=== PATIENT | female | born 1970 | race Caucasian/White ===

== ENCOUNTER 2016-11-04 21:41 | Emergency (ER) | payer BC ==
[2016-11-04 22:10] LABS: URINE APPEARANCE SL CLOUDY; URINE BILIRUBIN NEGATIVE (NEGATIVE); URINE BLOOD MODERATE (NEGATIVE); URINE COLOR ORANGE; URINE KETONE NEGATIVE (NEGATIVE); URINE LEUKOCYTE ESTERASE MODERATE (NEGATIVE); URINE NITRITE POSITIVE (NEGATIVE)
[2016-11-04 22:17] LABS: URINE WBC >50 (0-2/hpf)
[2016-11-04 22:18] LABS: URINE BACTERIA 1+
[2016-11-04] MEDS ORDERED: CIPROFLOXACIN HCL 500 MG TABLET PO ONE (22:32)
--- NOTE | 2016-11-04 22:42 | Emergency Department Record ---
History of Present Illness - General Chief complaint: Female Urogenital Problem Stated complaint: URINARY PROBLEMS Time Seen by Provider: 11/04/16 22:07 Source: Patient Mode of Arrival: Ambulatory Limitations: No limitations - History of Present Illness Initial comments: pt was dxd with uti at [facility] and finished a course of keflex. symptoms got better for a day then got worse again. pt has dysuria, suprapubic pain. MD Complaint: Dysuria, Pelvic pain Onset/Timin -: Days(s) Location: Suprapubic Severity scale (1-10): 8 Quality: Other Consistency: Constant Improves with: None Worsens with: Urination Associated Symptoms: Dysuria - Related Data Home Medications Medication Instructions Recorded Confirmed Last Taken Atorvastatin Calcium [Lipitor] 20 mg PO QHS 01/26/14 07/29/16 2 Days Ago Metformin HCl [Glucophage] 1,000 mg PO BID 01/26/14 07/29/16 1 Day Ago Glimepiride [Amaryl] 4 mg PO BID 02/22/14 02/03/16 1 Day Ago Lisinopril [Zestril] 5 mg PO DAILY 11/29/14 02/03/16 1 Day Ago Cyclobenzaprine HCl [Flexeril] 10 mg PO ASDIR PRN 07/29/16 07/29/16 2 Days Ago Dulaglutide [Trulicity] 0.75 mg SQ WEEKLY 07/29/16 07/29/16 2 Days Ago Previous Rx's Medication Instructions Recorded Ciprofloxacin HCl [Cipro] 500 mg PO Q12HR #5 tablet 11/04/16 Allergies Allergy/AdvReac Type Severity Reaction Status Date / Time naproxen Allergy Intermediate SWELLING Verified 07/29/16 18:56 OF THE TONGUE Travel Screening - Travel/Exposure Within Last 30 Days Have you traveled within the last 30 days?: No - Travel Symptoms Symptom Screening: None Review of Systems Reviewed: No additional complaints except as noted below Constitutional: Reports: As per HPI. Denies: Chills, Fever, Malaise, Night sweats, Weakness, Weight change Eyes: Reports: As per HPI. Denies: Eye discharge, Eye pain, Photophobia, Vision change ENT: Reports: As per HPI. Denies: Congestion, Dental pain, Ear pain, Epistaxis , Hearing loss, Throat pain Respiratory: Reports: As per HPI. Denies: Cough, Dyspnea, Hemoptysis, Stridor, Wheezes Cardiovascular: Reports: As per HPI. Denies: Arrhythmia, Chest pain, Dyspnea on exertion, Edema, Murmurs, Orthopnea, Palpitations, Paroxysmal nocturnal dyspnea, Rheumatic Fever, Syncope Endocrine: Reports: As per HPI. Denies: Fatigue, Heat or cold intolerance, Polydipsia, Polyuria Gastrointestinal: Reports: As per HPI. Denies: Abdominal pain, Constipation, Diarrhea, Hematemesis, Hematochezia, Melena, Nausea, Vomiting Genitourinary: Reports: As per HPI. Denies: Abnormal menses, Discharge, Dyspareunia, Dysuria, Frequency, Hematuria, Incontinence, Retention, Urgency Musculoskeletal: Reports: As per HPI. Denies: Arthralgia, Back pain, Gout, Joint swelling, Myalgia, Neck pain Skin: Reports: As per HPI. Denies: Bruising, Change in color, Change in hair/ nails, Lesions, Pruritus, Rash Neurological: Reports: As per HPI. Denies: Abnormal gait, Confusion, Headache, Numbness, Paresthesias, Seizure, Tingling, Tremors, Vertigo, Weakness Psychiatric: Reports: As per HPI. Denies: Anxiety, Auditory hallucinations, Depression, Homicidal thoughts, Suicidal thoughts, Visual hallucinations Hematological/Lymphatic: Reports: As per HPI. Denies: Anemia, Blood Clots, Easy bleeding, Easy bruising, Swollen glands Past Medical History - SOCIAL HISTORY Smoking Status: Current every day smoker - RESPIRATORY Hx Respiratory Disorders: Yes Hx Asthma: Yes - CARDIOVASCULAR Hx Cardio Disorders: Yes Hx Hypertension: Yes - NEURO Hx Neuro Disorders: No - GI Hx GI Disorders: No - Hx Genitourinary Disorders: No - ENDOCRINE Hx Endocrine Disorders: Yes Hx Diabetes: Yes (Type 2) - MUSCULOSKELETAL Hx Musculoskeletal Disorders: Yes Hx Arthritis: Yes (shoulders) Comment:: c5-c6 fusing - PSYCH Hx Psych Problems: No - HEMATOLOGY/ONCOLOGY Hx Hematology/Oncology Disorders: No Family Medical History Any Significant Family History?: Yes Hx Diabetes: Mother, Grandparents Physical Exam - General General Appearance: Alert, Oriented x3, Cooperative, Mild distress - Head Head exam: Normal inspection - Eye Eye exam: Normal appearance, PERRL, EOMI Pupils: Normal accommodation - ENT ENT exam: Normal exam, Mucous membranes moist, Normal external ear exam, Normal orophraynx Ear exam: Normal external inspection. negative: External canal tenderness Nasal Exam: Normal inspection. negative: Discharge, Sinus tenderness Mouth exam: Normal external inspection, Tongue normal Teeth exam: Normal inspection. negative: Dental caries Throat exam: Normal inspection. negative: Tonsillar erythema, Tonsillar exudate - Neck Neck exam: Normal inspection, Full ROM. negative: Tenderness - Respiratory Respiratory exam: Normal lung sounds bilaterally. negative: Respiratory distress - Cardiovascular Cardiovascular Exam: Regular rate, Normal rhythm, Normal heart sounds - GI/Abdominal GI/Abdominal exam: Soft, Normal bowel sounds, Tenderness (suprapubic) - Rectal Rectal exam: Deferred - exam: Deferred - Extremities Extremities exam: Normal inspection, Full ROM, Normal capillary refill. negative: Tenderness - Back Back exam: Reports: Normal inspection, Full ROM. Denies: Muscle spasm, Rash noted, Tenderness - Neurological Neurological exam: Alert, CN II-XII intact, Normal gait, Oriented X3 - Psychiatric Psychiatric exam: Normal affect, Normal mood - Skin Skin exam: Dry, Intact, Normal color, Warm Course Vital Signs 11/04/16 21:55 Temperature 98.4 F Pulse Rate 84 Respiratory 18 Rate Blood Pressure 155/79 Pulse Ox 98 Medical Decision Making - Lab Data Lab Results 11/04/16 Range/Units 22:11 Urine Color [place] H Urine Appearance Sl cloudy Urine pH 5.0 (5.0-8.0) Ur Specific [place] 1.020 (1.002-1.030) Urine Protein 100 mg/dl H (NEGATIVE) Urine Glucose (UA) 250 mg/dl H (NEGATIVE) Urine Ketones Negative (NEGATIVE) Urine Blood Moderate (NEGATIVE) Urine Nitrite Positive H (NEGATIVE) Urine Bilirubin Negative (NEGATIVE) Urine Urobilinogen 4.0 H (0.20 - 1.00) E.U./dL Ur Leukocyte Esterase Moderate H (NEGATIVE) Urine RBC 3 - 6 (NONE SEEN) Urine WBC >50 (0-2/hpf) Ur Epithelial Cells 3 - 6 (FEW) Urine Bacteria 1+ Disposition Disposition: Discharge Clinical Impression: UTI (urinary tract infection) Qualifiers: Urinary tract infection type: acute cystitis Hematuria presence: without hematuria Qualified Code(s): N30.00 - Acute cystitis without hematuria Disposition: Home, Self-Care Condition: (1) Good Instructions: Urinary Tract Infection in Women (ED) Additional Instructions: follow up with family doctor, return sooner if worse. push fluids. Prescriptions: Ciprofloxacin HCl [Cipro] 500 mg PO Q12HR #5 tablet Forms: Patient Portal Access
== END 2016-11-04 23:01 | disposition home or self-care (01) ==
LOC: ER 21:41
DX: N30.00 Acute cystitis without hematuria (principal)
CPT/HCPCS: 81001; 99282

== ENCOUNTER 2017-02-04 00:26 | Emergency (ER) | payer BC ==
[2017-02-04] MEDS ORDERED: HYDROMORPHONE HCL 1 MG/ML CPJ IM ONE (01:03)
[2017-02-04] MEDS ORDERED: PROMETHAZINE HCL 25 MG/ML VIAL IM ONE (01:03)
[2017-02-04] MEDS ORDERED: ORPHENADRINE CITRATE 60MG/2ML VIAL IM ONE (01:03)
--- NOTE | 2017-02-04 01:09 | Emergency Department Record ---
History of Present Illness - General Chief Complaint: Back Pain/Injury Stated Complaint: BACK PAIN Time Seen by Provider: 02/04/17 00:54 Source: Patient Mode of Arrival: Ambulatory Limitations: No limitations - History of Present Illness Initial Comments: pt has had r back pain since she wokeup which has progressively gotten worse. it radiates into her buttock and leg. she denies known injury. she has no numbness or problems with bowel or bladder MD Complaint: Back pain Onset/Timin -: Days(s) Similar Symptoms Previously: No Place: Home Radiation: Buttocks, Right leg Severity: Mild Severity scale (1-10): 8 Quality: Burning Consistency: Constant Improves With: None Worsens With: None Context: Unknown Associated Symptoms: Denies other symptoms Treatments Prior to Arrival: Other - Related Data Home Medications Medication Instructions Recorded Confirmed Last Taken Atorvastatin Calcium [Lipitor] 20 mg PO QHS 01/26/14 02/04/17 2 Days Ago ~07/27/16 Metformin HCl [Glucophage] 1,000 mg PO BID 01/26/14 02/04/17 1 Day Ago ~07/28/16 Glimepiride [Amaryl] 4 mg PO BID 02/22/14 02/04/17 1 Day Ago ~07/28/16 Lisinopril [Zestril] 5 mg PO DAILY 11/29/14 02/04/17 1 Day Ago ~07/28/16 Cyclobenzaprine HCl [Flexeril] 10 mg PO ASDIR PRN 07/29/16 02/04/17 2 Days Ago ~07/27/16 Previous Rx's Medication Instructions Recorded Hydrocodone/Acetaminophen [[place] 1 each PO QID #10 tablet 02/04/17 5-325 Tablet] Allergies Allergy/AdvReac Type Severity Reaction Status Date / Time naproxen Allergy Intermediate SWELLING Verified 07/29/16 18:56 OF THE TONGUE Travel Screening - Travel/Exposure Within Last 30 Days Have you traveled within the last 30 days?: No - Travel/Exposure Within Last Year Have you traveled outside the [place] in the last year?: No - Additonal Travel Details Have you been exposed to anyone with a communicable illness?: No - Travel Symptoms Symptom Screening: None Review of Systems Reviewed: No additional complaints except as noted below Constitutional: Reports: As per HPI. Denies: Chills, Fever, Malaise, Night sweats, Weakness, Weight change Eyes: Reports: As per HPI. Denies: Eye discharge, Eye pain, Photophobia, Vision change ENT: Reports: As per HPI. Denies: Congestion, Dental pain, Ear pain, Epistaxis , Hearing loss, Throat pain Respiratory: Reports: As per HPI. Denies: Cough, Dyspnea, Hemoptysis, Stridor, Wheezes Cardiovascular: Reports: As per HPI. Denies: Arrhythmia, Chest pain, Dyspnea on exertion, Edema, Murmurs, Orthopnea, Palpitations, Paroxysmal nocturnal dyspnea, Rheumatic Fever, Syncope Endocrine: Reports: As per HPI. Denies: Fatigue, Heat or cold intolerance, Polydipsia, Polyuria Gastrointestinal: Reports: As per HPI. Denies: Abdominal pain, Constipation, Diarrhea, Hematemesis, Hematochezia, Melena, Nausea, Vomiting Genitourinary: Reports: As per HPI. Denies: Abnormal menses, Discharge, Dyspareunia, Dysuria, Frequency, Hematuria, Incontinence, Retention, Urgency Musculoskeletal: Reports: As per HPI. Denies: Arthralgia, Back pain, Gout, Joint swelling, Myalgia, Neck pain Skin: Reports: As per HPI. Denies: Bruising, Change in color, Change in hair/ nails, Lesions, Pruritus, Rash Neurological: Reports: As per HPI. Denies: Abnormal gait, Confusion, Headache, Numbness, Paresthesias, Seizure, Tingling, Tremors, Vertigo, Weakness Psychiatric: Reports: As per HPI. Denies: Anxiety, Auditory hallucinations, Depression, Homicidal thoughts, Suicidal thoughts, Visual hallucinations Hematological/Lymphatic: Reports: As per HPI. Denies: Anemia, Blood Clots, Easy bleeding, Easy bruising, Swollen glands Past Medical History - SOCIAL HISTORY Smoking Status: Current every day smoker Alcohol Use: None Drug Use: None - RESPIRATORY Hx Respiratory Disorders: Yes Hx Asthma: Yes - CARDIOVASCULAR Hx Cardio Disorders: Yes Hx Hypertension: Yes - NEURO Hx Neuro Disorders: No - GI Hx GI Disorders: No - Hx Genitourinary Disorders: No - ENDOCRINE Hx Endocrine Disorders: Yes Hx Diabetes: Yes (Type 2) - MUSCULOSKELETAL Hx Musculoskeletal Disorders: Yes Hx Arthritis: Yes (shoulders) Comment:: c5-c6 fusing - PSYCH Hx Psych Problems: No - HEMATOLOGY/ONCOLOGY Hx Hematology/Oncology Disorders: No Family Medical History Any Significant Family History?: No Hx Diabetes: Mother, Grandparents Physical Exam - General General Appearance: Alert, Oriented x3, Cooperative, Mild distress - Head Head exam: Normal inspection - Eye Eye exam: Normal appearance, PERRL, EOMI Pupils: Normal accommodation - ENT ENT exam: Normal exam, Mucous membranes moist, Normal external ear exam, Normal orophraynx Ear exam: Normal external inspection. negative: External canal tenderness Nasal Exam: Normal inspection. negative: Discharge, Sinus tenderness Mouth exam: Normal external inspection, Tongue normal Teeth exam: Normal inspection. negative: Dental caries Throat exam: Normal inspection. negative: Tonsillar erythema, Tonsillar exudate - Neck Neck exam: Normal inspection, Full ROM. negative: Tenderness - Respiratory Respiratory exam: Normal lung sounds bilaterally. negative: Respiratory distress - Cardiovascular Cardiovascular Exam: Regular rate, Normal rhythm, Normal heart sounds - GI/Abdominal GI/Abdominal exam: Soft, Normal bowel sounds. negative: Tenderness - Rectal Rectal exam: Deferred - exam: Deferred - Extremities Extremities exam: Normal inspection, Full ROM, Normal capillary refill. negative: Tenderness - Back Back exam: Reports: Muscle spasm, Paraspinal tenderness, Tenderness. Denies: Full ROM, Rash noted - Neurological Neurological exam: Alert, CN II-XII intact, Normal gait, Oriented X3, Reflexes normal - Psychiatric Psychiatric exam: Normal affect, Normal mood - Skin Skin exam: Dry, Intact, Normal color, Warm Course Vital Signs 02/04/17 00:28 Temperature 98.8 F Pulse Rate 85 Respiratory 20 Rate Blood Pressure 167/92 Pulse Ox 99 Disposition Disposition: Discharge Clinical Impression: Radiculopathy Qualifiers: Spinal region: unspecified Qualified Code(s): M54.10 - Radiculopathy, site unspecified Disposition: Home, Self-Care Condition: (1) Good Instructions: Lumbar Radiculopathy (ED) Additional Instructions: follow up with family doctor. return sooner if worse. no lifting more then 5 lbs for 5 days Prescriptions: Hydrocodone/Acetaminophen [[place] 5-325 Tablet] 1 each PO QID #10 tablet Forms: Patient Portal Access
== END 2017-02-04 01:52 | disposition home or self-care (01) ==
LOC: ER 00:26
DX: M54.10 Radiculopathy, site unspecified (principal)
CPT/HCPCS: 96372; 99283; J1170; J2360; J2550

== ENCOUNTER 2018-07-12 21:01 | Emergency (ER) | payer BC ==
[2018-07-12 21:38] LABS: BASO % 0.3 % (0-6); GRAN % 64.1 % (47-80); HEMATOCRIT 42.7 % (35.0-47.0); HEMOGLOBIN 14.3 gm/dl (11.6-16.0); LYMPH % 27.5 % (16-45); MEAN CELL VOLUME 92.2 fl (81-97); MEAN CORPUSCULAR HEMOGLOBIN 30.9 pg (27-33); MEAN CORPUSCULAR HGB CONC 33.5 g/dl (32-36); MEAN PLATELET VOLUME 10.2 fl (7.4-10.4); MONO % 6.1 % (0-9); PLATELET COUNT 304 K/uL (130-400); RED BLOOD COUNT 4.63 M/uL (3.80-5.40); RED CELL DISTRIBUTION WIDTH 13.5 % (11.5-14.5); WHITE BLOOD COUNT W/O DIFF 10.9 K/uL (4.2-12.2)
[2018-07-12 21:46] LABS: BLOOD UREA NITROGEN 11 mg/dL (6-20)
[2018-07-12 21:47] LABS: CREATININE 0.6 mg/dL (0.5-0.9); EST GLOMERULAR FILTRATION RATE > 60 mL/min
[2018-07-12 21:49] LABS: GLUCOSE,RANDOM 301 mg/dL (74-109)
--- NOTE | 2018-07-12 21:50 | Emergency Department Record ---
History of Present Illness - General Chief complaint: Pain Stated complaint: RT SHOOULDER PAIN Time Seen by Provider: 07/12/18 21:23 Source: Patient Mode of Arrival: Ambulatory Limitations: No limitations - History of Present Illness Initial comments: The patient is here due to worsening R shoulder pain for 3 days. She did fall mildly about a week ago but did not land on the shoulder and had no pain after for days. The patient states she has a long hx of similar problems mainly with the L shoulder. Now the R shoulder has stiffened up and is painful with ROM of her R arm. The patient states she has significant arthritis in the neck also. There is no R arm numbness, tingling, or weakness. MD Complaint: Neck Pain Onset/Timin -: Days(s) Location: Right, Shoulder Severity scale (1-10): 8 Quality: Sharp Consistency: Constant, Getting worse Improves with: Nothing Worsens with: Exertion - Related Data Previous Rx's Medication Instructions Recorded Cyclobenzaprine HCl [Flexeril] 10 mg PO TID PRN #20 tablet 07/12/18 Allergies Allergy/AdvReac Type Severity Reaction Status Date / Time naproxen Allergy Intermediate SWELLING Verified 07/29/16 18:56 OF THE TONGUE Travel Screening - Travel/Exposure Within Last 30 Days Have you traveled within the last 30 days?: No - Travel Symptoms Symptom Screening: None Review of Systems Constitutional: Denies: Chills, Fever Eyes: Denies: Eye discharge ENT: Denies: Congestion Respiratory: Denies: Cough, Dyspnea Past Medical History - SOCIAL HISTORY Smoking Status: Current every day smoker Drug Use: None - RESPIRATORY Hx Respiratory Disorders: Yes Hx Asthma: Yes - CARDIOVASCULAR Hx Cardio Disorders: Yes Hx Hypertension: Yes - NEURO Hx Neuro Disorders: No - GI Hx GI Disorders: No - Hx Genitourinary Disorders: No - ENDOCRINE Hx Endocrine Disorders: Yes Hx Diabetes: Yes (Type 2) - MUSCULOSKELETAL Hx Musculoskeletal Disorders: Yes Hx Arthritis: Yes (shoulders) Comment:: c5-c6 fusing - PSYCH Hx Psych Problems: No - HEMATOLOGY/ONCOLOGY Hx Hematology/Oncology Disorders: No Family Medical History Any Significant Family History?: Yes Hx Diabetes: Mother, Grandparents Physical Exam - General General Appearance: Alert, Oriented x3, Cooperative, No acute distress - Head Head exam: Atraumatic, Normocephalic, Normal inspection - Eye Eye exam: Normal appearance, PERRL, EOMI - ENT Throat exam: Normal inspection. negative: Tonsillar erythema, Tonsillar exudate - Neck Neck exam: Normal inspection, Full ROM, Tenderness (There is R posterior cervical muscle tenderness.), Other (The patient is 100% reproducible with palpation of the R trapezius muscle. ). negative: Lymphadenopathy, Meningismus - Respiratory Respiratory exam: Normal lung sounds bilaterally - Cardiovascular Cardiovascular Exam: Regular rate, Normal rhythm, Normal heart sounds - GI/Abdominal GI/Abdominal exam: Soft, Normal bowel sounds. negative: Tenderness - Extremities Extremities exam: Normal inspection, Normal capillary refill. negative: Full ROM (There is decreased full abduction of the R shoulder and decreased full flexion and extension. She is able to abduct to 90 degrees.), Tenderness - Back Back exam: Reports: Normal inspection - Neurological Neurological exam: Alert, Other (The R arm is NVI.). negative: Motor sensory deficit Course Vital Signs 07/12/18 21:10 Temperature 98 F Pulse Rate [ 82 Pulse Ox Probe] Respiratory 20 Rate Blood Pressure 166/83 [Left Arm] Pulse Ox 97 - Reevaluation(s) Reevaluation #1: The patient is doing a lot better at this time. Her pain is much improved and she is ready for home. She does have an appointment with her PCP for next week. 07/12/18 22:22 Medical Decision Making - Lab Data Result diagrams: 07/12/18 21:31 07/12/18 21:31 Lab Results 07/12/18 Range/Units 21:31 WBC 10.9 (4.2-12.2) K/uL RBC 4.63 (3.80-5.40) M/uL Hgb 14.3 (11.6-16.0) gm/dl Hct 42.7 (35.0-47.0) % MCV 92.2 (81-97) fl MCH 30.9 (27-33) pg MCHC 33.5 (32-36) g/dl RDW 13.5 (11.5-14.5) % Plt Count 304 (130-400) K/uL MPV 10.2 (7.4-10.4) fl Gran % 64.1 (47-80) % Lymphocytes % 27.5 (16-45) % Monocytes % 6.1 (0-9) % Eosinophils % 2.0 (0-6) % Basophils % 0.3 (0-6) % Disposition Disposition: Discharge Clinical Impression: Trapezius muscle strain Qualifiers: Encounter type: initial encounter Laterality: right Qualified Code(s): S46.811A - Strain of other muscles, fascia and tendons at shoulder and upper arm level, right arm, initial encounter Disposition: Home, Self-Care Condition: (2) Stable Instructions: Muscle Strain (ED) Additional Instructions: Please rest the R arm for 3 days and use Motrin or Tylenol for pain along with the Flexeril. Please see your family doctor next week for recheck as planned. Return to the ER for any worsening symptoms. Prescriptions: Cyclobenzaprine HCl [Flexeril] 10 mg PO TID PRN #20 tablet PRN Reason: Pain Forms: Patient Portal Access Time of Disposition: 22:24 Quality - Quality Measures Quality Measures: N/A - Blood Pressure Screening View Details: Yes Does Patient Have Any of the Following: No Blood Pressure Classification: Pre-Hypertensive BP Reading Systolic Measurement: 166 Diastolic Measurement: 83 Screening for High Blood Pressure: < Pre-Hypertensive BP, F/U Documented > [ [id number]] Pre-Hypertensive Follow-up Interventions: Referral to alternative/primary care provider.
[2018-07-12] MEDS ORDERED: ORPHENADRINE CITRATE 60MG/2ML VIAL IM ONE (21:52)
[2018-07-12] MEDS ORDERED: KETOROLAC 30 MG/ML VIAL IM ONE (21:52)
== END 2018-07-12 22:40 | disposition home or self-care (01) ==
LOC: ER 21:01
DX: S46.811A Strain of other muscles, fascia and tendons at shoulder and upper arm level, right arm, initial encounter (principal); W00.0XXA Fall on same level due to ice and snow, initial encounter; I10 Essential (primary) hypertension; F17.210 Nicotine dependence, cigarettes, uncomplicated; E11.9 Type 2 diabetes mellitus without complications
CPT/HCPCS: 80048; 85025; 96372; 99283; 99284; J1885; J2360

== ENCOUNTER 2018-11-02 20:42 | Emergency (ER) | payer BC ==
[2018-11-02] MEDS ORDERED: 0.9 % SODIUM CHLORIDE 1,000 ML BAG IV ONE (21:27)
[2018-11-02] MEDS ORDERED: ACETAMINOPHEN 1,000 MG/100 ML BTL IVPB ONE (21:27)
[2018-11-02] MEDS ORDERED: KETOROLAC 30 MG/ML VIAL IVP ONE (21:27)
--- NOTE | 2018-11-02 21:29 | Emergency Department Record ---
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 Her menses started Wednesday10-31-18, and since then she has had the feeling of "my uterus is falling out of my vagina." She takes toradol but it isn't helping. [facility] of uterine ablation 2014; C section. Her pain is in her perineum so intense that she can't sit flat on her bottom. Onset/Timin -: Days(s) Radiation: None Migration to: No migration Severity scale (1-10): 6 Quality: Cramping Consistency: Constant Improves With: Medication Worsens With: Medication Context: Foreign travel Associated Symptoms: Denies other symptoms - Related Data LMP (females 10-50): Current Home Medications Medication Instructions Recorded Confirmed Last Taken Dulaglutide [Trulicity] 1.5 mg SQ WEEKLY 11/02/18 11/02/18 10/27/18 Previous Rx's Medication Instructions Recorded Cyclobenzaprine HCl [Flexeril] 10 mg PO TID PRN #20 tablet 07/12/18 Allergies Allergy/AdvReac Type Severity Reaction Status Date / Time naproxen Allergy Intermediate SWELLING Verified 07/29/16 18:56 OF THE TONGUE Travel Screening - Travel/Exposure Within Last 30 Days Have you traveled within the last 30 days?: No - Travel/Exposure Within Last Year Have you traveled outside the [place] in the last year?: No - Additonal Travel Details Have you been exposed to anyone with a communicable illness?: No - Travel Symptoms Symptom Screening: None Review of Systems Reviewed: No additional complaints except as noted below Constitutional: Reports: As per HPI. Denies: Chills, Fever, Malaise, Night sweats, Weakness, Weight change Eyes: Reports: As per HPI. Denies: Eye discharge, Eye pain, Photophobia, Vision change ENT: Reports: As per HPI. Denies: Congestion, Dental pain, Ear pain, Epistaxis , Hearing loss, Throat pain Respiratory: Reports: As per HPI. Denies: Cough, Dyspnea, Hemoptysis, Stridor, Wheezes Cardiovascular: Reports: As per HPI. Denies: Arrhythmia, Chest pain, Dyspnea on exertion, Edema, Murmurs, Orthopnea, Palpitations, Paroxysmal nocturnal dyspnea, Rheumatic Fever, Syncope Endocrine: Reports: As per HPI. Denies: Fatigue, Heat or cold intolerance, Polydipsia, Polyuria Gastrointestinal: Reports: As per HPI. Denies: Abdominal pain, Constipation, Diarrhea, Hematemesis, Hematochezia, Melena, Nausea, Vomiting Genitourinary: Reports: As per HPI. Denies: Abnormal menses, Discharge, Dyspareunia, Dysuria, Frequency, Hematuria, Incontinence, Retention, Urgency Musculoskeletal: Reports: As per HPI. Denies: Arthralgia, Back pain, Gout, Joint swelling, Myalgia, Neck pain Skin: Reports: As per HPI. Denies: Bruising, Change in color, Change in hair/ nails, Lesions, Pruritus, Rash Neurological: Reports: As per HPI. Denies: Abnormal gait, Confusion, Headache, Numbness, Paresthesias, Seizure, Tingling, Tremors, Vertigo, Weakness Psychiatric: Reports: As per HPI. Denies: Anxiety, Auditory hallucinations, Depression, Homicidal thoughts, Suicidal thoughts, Visual hallucinations Hematological/Lymphatic: Reports: As per HPI. Denies: Anemia, Blood Clots, Easy bleeding, Easy bruising, Swollen glands Past Medical History - SOCIAL HISTORY Smoking Status: Current every day smoker Alcohol Use: None Drug Use: None - RESPIRATORY Hx Respiratory Disorders: Yes Hx Asthma: Yes Hx Bronchitis: Yes Hx Pneumonia: Yes - CARDIOVASCULAR Hx Cardio Disorders: Yes Hx Hypertension: Yes - NEURO Hx Neuro Disorders: No - GI Hx GI Disorders: No - Hx Genitourinary Disorders: No - ENDOCRINE Hx Endocrine Disorders: Yes Hx Diabetes: Yes (Type 2) - MUSCULOSKELETAL Hx Musculoskeletal Disorders: Yes Hx Arthritis: Yes (shoulders) Comment:: c5-c6 fusing - PSYCH Hx Psych Problems: No - HEMATOLOGY/ONCOLOGY Hx Hematology/Oncology Disorders: No Family Medical History Any Significant Family History?: Yes Hx Diabetes: Mother, Grandparents Physical Exam - General General Appearance: Alert, Oriented x3, Cooperative, Moderate distress - Head Head exam: Normal inspection - Eye Eye exam: Normal appearance, PERRL Pupils: Normal accommodation - ENT ENT exam: Normal exam, Mucous membranes moist, Normal external ear exam, Normal orophraynx, TM's normal bilaterally Ear exam: Normal external inspection. negative: External canal tenderness Nasal Exam: Normal inspection. negative: Discharge, Sinus tenderness Mouth exam: Normal external inspection, Tongue normal Teeth exam: Normal inspection. negative: Dental caries Throat exam: Normal inspection. negative: Tonsillar erythema, Tonsillar exudate - Neck Neck exam: Normal inspection, Full ROM. negative: Tenderness - Respiratory Respiratory exam: Normal lung sounds bilaterally. negative: Respiratory distress - Cardiovascular Cardiovascular Exam: Regular rate, Normal rhythm, Normal heart sounds - GI/Abdominal GI/Abdominal exam: Soft, Normal bowel sounds. negative: Tenderness - Rectal Rectal exam: Deferred - exam: Vaginal bleeding (with small clots), Other (Patient is obese and I am unable to feel size of uterus or ovaries; her entire female organs ride very low in the pelvis and the speculum opened produced a decompression so that menstrual flow increased. Cultures taken.) - Extremities Extremities exam: Normal inspection, Full ROM, Normal capillary refill. negative: Tenderness - Back Back exam: Reports: Normal inspection, Full ROM. Denies: Muscle spasm, Rash noted, Tenderness - Neurological Neurological exam: Alert, Normal gait, Oriented X3, Reflexes normal - Psychiatric Psychiatric exam: Normal affect, Normal mood - Skin Skin exam: Dry, Intact, Normal color, Warm Course Vital Signs 11/02/18 20:57 Temperature 98.4 F Pulse Rate [ 91 H Pulse Ox Probe] Respiratory 20 Rate Blood Pressure 184/89 [Left Arm] Pulse Ox 96 - Reevaluation(s) Reevaluation #1: Patient is feeling much better after the IV tylenol and toradol. Her pain level is 0-1/10 currently and she is redy for [place] home. She will follow with her [employer] physician as previously arranged on 11-09-18. 11/02/18 23:04 Medical Decision Making - Management Options MDM Management: No Additional Work-up Planned - Data Complexity MDM Data: Labs Ordered and/or Reviewed - Lab Data Result diagrams: 11/02/18 21:40 11/02/18 21:40 Disposition Clinical Impression: Chronic pain in female pelvis Disposition: Home, Self-Care Condition: (1) Good Instructions: Pelvic Pain in Women (ED) Additional Instructions: Resume toradol OR motrin. Alternate this with tylenol as directed. Follow up with Dr. Redding gynecology at [facility] as previously arranged. Quality - Quality Measures Quality Measures: N/A - Blood Pressure Screening Does Patient Have Any of the Following: No Blood Pressure Classification: Pre-Hypertensive BP Reading Systolic Measurement: 184 Diastolic Measurement: 89 Screening for High Blood Pressure: Patient Exclusion, Hx of HTN [G9744]
[2018-11-02 21:41] LABS: BASO % 0.3 % (0-6); EOS % 2.6 % (0-6); GRAN % 66.7 % (47-80); HEMATOCRIT 40.5 % (35.0-47.0); HEMOGLOBIN 13.4 gm/dl (11.6-16.0); LYMPH % 24.3 % (16-45); MEAN CELL VOLUME 92.9 fl (81-97); MEAN CORPUSCULAR HEMOGLOBIN 30.7 pg (27-33); MEAN CORPUSCULAR HGB CONC 33.1 g/dl (32-36); MEAN PLATELET VOLUME 9.7 fl (7.4-10.4); MONO % 6.1 % (0-9); PLATELET COUNT 301 K/uL (130-400); RED BLOOD COUNT 4.36 M/uL (3.80-5.40); RED CELL DISTRIBUTION WIDTH 13.8 % (11.5-14.5); WHITE BLOOD COUNT W/O DIFF 11.9 K/uL (4.2-12.2)
[2018-11-02 21:42] LABS: URINE APPEARANCE SL CLOUDY; URINE BILIRUBIN NEGATIVE (NEGATIVE); URINE BLOOD LARGE (NEGATIVE); URINE COLOR YELLOW; URINE KETONE NEGATIVE (NEGATIVE); URINE LEUKOCYTE ESTERASE NEGATIVE (NEGATIVE); URINE NITRITE NEGATIVE (NEGATIVE); URINE PROTEIN NEGATIVE (NEGATIVE); URINE UROBILINOGEN 0.2 E.U./dL (0.20 - 1.00)
[2018-11-02 21:46] LABS: HCG,QUALITATIVE URINE NEGATIVE (NEGATIVE); URINE GLUCOSE (UA) >=1000 mg/dL (NEGATIVE)
[2018-11-02 21:53] LABS: URINE BACTERIA NONE SEEN; URINE WBC NONE SEEN (0-2/hpf)
[2018-11-02 21:57] LABS: BLOOD UREA NITROGEN 12 mg/dL (6-20); CREATININE 0.5 mg/dL (0.5-0.9); EST GLOMERULAR FILTRATION RATE > 60 mL/min
[2018-11-02 21:58] LABS: TOTAL PROTEIN 7.5 g/dL (6.6-8.7)
[2018-11-02 22:00] LABS: GLUCOSE,RANDOM 231 mg/dL (74-109)
[2018-11-02 22:03] LABS: ALB/GLOB RATIO 1.3 (1.1-1.8); ALBUMIN 4.3 g/dL (4.0-5.0); ALKALINE PHOSPHATASE 68 U/L (35-104); ALT/SGPT 20 U/L (<33); AST/SGOT 11 U/L (10.0-35.0)
== END 2018-11-02 23:34 | disposition home or self-care (01) ==
LOC: ER 20:42
DX: G89.29 Other chronic pain (principal); R10.2 Pelvic and perineal pain; I10 Essential (primary) hypertension; F17.210 Nicotine dependence, cigarettes, uncomplicated; E11.9 Type 2 diabetes mellitus without complications; Z79.84 Long term (current) use of oral hypoglycemic drugs
CPT/HCPCS: 99284 ×2; 96365; 96375; 85025; 80053; 81001; 81025; Q0111; J1885; 87210; J7030

== ENCOUNTER 2019-04-12 21:13 | Emergency (ER) | payer BC ==
--- NOTE | 2019-04-12 21:28 | Emergency Department Record ---
History of Present Illness - General Stated Complaint: ABD PAIN/RASH Time Seen by Provider: 04/12/19 21:22 Source: Patient Mode of Arrival: Ambulatory Limitations: No limitations - History of Present Illness Initial Comments: 49 yo female presents to ED for evaluation of RUQ abdominal pain symptoms that worsen with eating, reports associated loose stools as well. Patient denies fever, chills, or vomiting symptoms. Patient reports similar symptoms 1 year ago that resolved, underwent US imaging of the gallbladder at that time that was negative. Patient denies health problems other than DM II. MD Complaint: Abdominal pain Onset/Timin -: Days(s) Location: RUQ Radiation: None Severity: Moderate Quality: Aching Consistency: Intermittent Improves With: Nothing Worsens With: Eating Associated Symptoms: Diarrhea - Related Data Patient : No Home Medications Medication Instructions Recorded Confirmed Last Taken Lisinopril 20 mg PO DAILY 04/12/19 04/12/19 04/12/19 Allergies Allergy/AdvReac Type Severity Reaction Status Date / Time naproxen Allergy Intermediate SWELLING Verified 07/29/16 18:56 OF THE TONGUE Review of Systems Constitutional: Denies: Chills, Fever, Malaise, Night sweats Eyes: Denies: Eye discharge, Eye pain ENT: Denies: Congestion, Ear pain, Epistaxis Respiratory: Denies: Cough, Dyspnea Cardiovascular: Denies: Chest pain, Dyspnea on exertion Endocrine: Denies: Fatigue, Heat or cold intolerance Gastrointestinal: Reports: Abdominal pain, Diarrhea, Nausea. Denies: Constipation, Vomiting Genitourinary: Denies: Incontinence, Retention Musculoskeletal: Denies: Arthralgia, Back pain Skin: Denies: Bruising, Change in color Neurological: Denies: Abnormal gait, Confusion, Headache, Seizure Psychiatric: Denies: Anxiety Hematological/Lymphatic: Denies: Anemia, Blood Clots Past Medical History - SOCIAL HISTORY Smoking Status: Current every day smoker Drug Use: None - RESPIRATORY Hx Respiratory Disorders: Yes Hx Asthma: Yes Hx Bronchitis: Yes Hx Pneumonia: Yes - CARDIOVASCULAR Hx Cardio Disorders: Yes Hx Hypertension: Yes - NEURO Hx Neuro Disorders: No - GI Hx GI Disorders: No - Hx Genitourinary Disorders: No - ENDOCRINE Hx Endocrine Disorders: Yes Hx Diabetes: Yes (Type 2) - MUSCULOSKELETAL Hx Musculoskeletal Disorders: Yes Hx Arthritis: Yes (shoulders) Comment:: c5-c6 fusing - PSYCH Hx Psych Problems: No - HEMATOLOGY/ONCOLOGY Hx Hematology/Oncology Disorders: No Family Medical History Hx Diabetes: Mother, Grandparents Physical Exam - General General Appearance: Alert, Oriented x3, Cooperative, No acute distress, Other (On mobile phone, well appearing on examination) Limitations: No limitations - Head Head exam: Atraumatic, Normocephalic, Normal inspection Head exam detail: negative: Abrasion, Contusion, Mccarty's sign, General tenderness, Hematoma, Laceration - Eye Eye exam: Normal appearance. negative: Conjunctival injection, Periorbital swelling, Periorbital tenderness, Scleral icterus - ENT Ear exam: negative: Auricular hematoma, Auricular trauma Nasal Exam: negative: Active bleeding, Discharge, Dried blood, Foreign body Mouth exam: negative: Drooling, Laceration, Muffled voice, Tongue elevation - Neck Neck exam: Normal inspection. negative: Meningismus, Tenderness - Respiratory Respiratory exam: Normal lung sounds bilaterally. negative: Rales, Respiratory distress, Rhonchi, Stridor - Cardiovascular Cardiovascular Exam: Regular rate, Normal rhythm, Normal heart sounds - GI/Abdominal GI/Abdominal exam: Soft, Tenderness (Mild TTP RUQ, no reboung, no guarding symptoms present.). negative: Rebound, Rigid - Rectal Rectal exam: Deferred - exam: Deferred - Extremities Extremities exam: Normal inspection. negative: Pedal edema, Tenderness - Back Back exam: Denies: CVA tenderness (R), CVA tenderness (L) - Neurological Neurological exam: Alert, Normal gait, Oriented X3 - Psychiatric Psychiatric exam: Normal affect, Normal mood - Skin Skin exam: Normal color. negative: Abrasion Type of lesion: negative: abrasion Course - Reevaluation(s) Reevaluation #1: 04/12/19 22:08 Laboratory studies were reviewed and appear grossly unremarkable for an acute process. Reevaluation #2: 04/12/19 23:05 Patient was reassessed, reports that Toradol has completely resolved her pain symptoms. Awaiting CT imaging for final interpretation. Reevaluation #3: 04/12/19 23:26 CT Abdomen and Pelvis: 9.5 cm fat containing umbilical hernia 3.5 cm adrenal nodule, likely adenoma Patient was updated on all results, reports that she continues to be pain-free, and appears stable for discharge at this time. Copy of the patient's CT imaging report was given as well to follow-up with her PCP. Medical Decision Making - Lab Data Result diagrams: 04/12/19 21:30 04/12/19 21:30 Disposition Disposition: Discharge Clinical Impression: RUQ abdominal pain Disposition: Home, Self-Care Condition: (2) Stable Instructions: Abdominal Pain (ED) Additional Instructions: Return to ED if your symptoms worsen or if you have any concerns. Follow-up with your family doctor in 3-5 days as directed. Time of Disposition: 23:05 Quality - Quality Measures Quality Measures: N/A - Blood Pressure Screening Does Patient Have Any of the Following: No Blood Pressure Classification: Pre-Hypertensive BP Reading Systolic Measurement: 158 Diastolic Measurement: 84 Screening for High Blood Pressure: < Pre-Hypertensive BP, F/U Documented > [G8950] Pre-Hypertensive Follow-up Interventions: Referral to alternative/primary care provider.
[2019-04-12 21:35] LABS: URINE APPEARANCE CLEAR; URINE BILIRUBIN NEGATIVE (NEGATIVE); URINE BLOOD NEGATIVE (NEGATIVE); URINE COLOR YELLOW; URINE KETONE NEGATIVE (NEGATIVE); URINE LEUKOCYTE ESTERASE NEGATIVE (NEGATIVE); URINE NITRITE NEGATIVE (NEGATIVE); URINE PROTEIN NEGATIVE (NEGATIVE); URINE UROBILINOGEN 0.2 E.U./dL (0.20 - 1.00)
[2019-04-12 21:38] LABS: URINE GLUCOSE (UA) >=1000 mg/dL (NEGATIVE)
[2019-04-12] MEDS: HYOSCYAMINE SULFATE ODT 0.125 MG TAB.SUBL SL ONE (21:43)
[2019-04-12 21:46] LABS: ABSOLUTE NEUTROPHIL COUNT 5.61; BASO % 0.2 % (0-6); EOS % 2.1 % (0-6); GRAN % 58.5 % (47-80); HEMATOCRIT 42.2 % (35.0-47.0); HEMOGLOBIN 13.8 gm/dl (11.6-16.0); LYMPH % 33.1 % (16-45); MEAN CELL VOLUME 90.6 fl (81-97); MEAN CORPUSCULAR HEMOGLOBIN 29.6 pg (27-33); MEAN CORPUSCULAR HGB CONC 32.7 g/dl (32-36); MEAN PLATELET VOLUME 10.1 fl (7.4-10.4); MONO % 6.1 % (0-9); PLATELET COUNT 303 K/uL (130-400); RED BLOOD COUNT 4.66 M/uL (3.80-5.40); RED CELL DISTRIBUTION WIDTH 16.3 % (11.5-14.5); WHITE BLOOD COUNT W/O DIFF 9.6 K/uL (4.2-12.2)
[2019-04-12 21:58] LABS: BLOOD UREA NITROGEN 9 mg/dL (6-20)
[2019-04-12 21:59] LABS: CREATININE 0.5 mg/dL (0.5-0.9); EST GLOMERULAR FILTRATION RATE > 60 mL/min; LIPASE 58 U/L (13-60); TOTAL PROTEIN 7.1 g/dL (6.6-8.7)
[2019-04-12 22:01] LABS: GLUCOSE,RANDOM 173 mg/dL (74-109)
[2019-04-12 22:04] LABS: ALB/GLOB RATIO 1.7 (1.1-1.8); ALBUMIN 4.5 g/dL (4.0-5.0); ALKALINE PHOSPHATASE 79 U/L (35-104); ALT/SGPT 38 U/L (<33); AST/SGOT 22 U/L (10.0-35.0)
[2019-04-12] MEDS: KETOROLAC 30 MG/ML VIAL IVP ONE (22:09)
--- NOTE | 2019-04-13 15:24 | CT SCAN REPORT ---
EXAM: CT OF THE ABDOMEN AND PELVIS WITH IV CONTRAST HISTORY: THIS IS A 49-YEAR-OLD FEMALE WITH RIGHT UPPER QUADRANT PAIN AND PRESSURE FOR FOUR DAYS. TECHNIQUE: CT of the abdomen and pelvis with IV contrast was obtained, 100 ml of Omnipaque 300 was utilized. Reconstruction of coronal and sagittal planes were obtained. Comparison: No prior exams are available for comparison: FINDINGS: Mild basilar atelectasis is present, notably linear involving the left base. The lung bases are clear. Decreased attenuation of the liver is present consistent with hepatic steatosis. The liver appears mildly enlarged, no contour nodularity or discrete mass. The gallbladder, pancreas, spleen, left adrenal, and kidneys appear within normal limits. There is a low attenuating 3.3 cm right adrenal gland nodule. The aorta and portal vein appear within normal limits, mesenteric vessels are patent. Nonobstructive bowel gas pattern is present, no evidence of acute appendicitis. No significant adenopathy, free fluid or free air. The uterus is surgically absent, no mass. There is a large fat containing umbilical hernia measuring up to 9.2 cm in transverse dimension, with mild fat stranding inferiorly. The osseous structures appear within normal limits. IMPRESSION: 1. HEPATIC STEATOSIS WITH HEPATOMEGALY, NO CONTOUR NODULARITY OR MASS. 2. 3.3 CM LOW ATTENUATING RIGHT ADRENAL GLAND NODULE, DIFFERENTIAL INCLUDES ADENOMA. RECOMMEND CT VERSUS MRI ADRENAL GLAND PROTOCOL FUR FURTHER CHARACTERIZATION. 3. 9.2 CM FAT CONTAINING UMBILICAL HERNIA WITH MILD ADJACENT FAT STRANDING. 4. NO ACUTE RIGHT UPPER QUADRANT ABNORMALITY IDENTIFIED. JOB NUMBER: [id number] MTDD
== END 2019-04-12 23:30 | disposition home or self-care (01) ==
LOC: ER 21:13
DX: R10.11 Right upper quadrant pain (principal); E11.9 Type 2 diabetes mellitus without complications; R19.7 Diarrhea, unspecified; I10 Essential (primary) hypertension; F17.210 Nicotine dependence, cigarettes, uncomplicated; Z79.84 Long term (current) use of oral hypoglycemic drugs
CPT/HCPCS: 99284 ×2; 96374; 83690; 85025; 80053; 81003; 74177; Q9967; J1980; J1885

== ENCOUNTER 2019-05-18 22:56 | Emergency (ER) | payer BC ==
[2019-05-19 00:26] LABS: BLOOD UREA NITROGEN 13 mg/dL (6-20); CREATININE 0.7 mg/dL (0.5-0.9); EST GLOMERULAR FILTRATION RATE > 60 mL/min
[2019-05-19 00:29] LABS: GLUCOSE,RANDOM 124 mg/dL (74-109)
--- NOTE | 2019-05-19 01:28 | Emergency Department Record ---
History of Present Illness - General Chief complaint: Hypogylcemia Stated complaint: LOW BLOOD SUGAR Time Seen by Provider: 05/18/19 23:17 Source: Patient, Family Mode of Arrival: Ambulatory Limitations: No limitations - History of Present Illness Initial comments: pts bs keeps dropping tonight. she was started on 2 new diabetic meds this week bringing her dm meds up to 5. the lowest it got was 51 and the only symptom she had was a headache Onset/Timin -: Hour(s) Improves with: Other Context: New medication Associated Symptoms: Headaches - [place] Coma Scale Eye Response: (4) Open spontaneously Motor Response: (6) Obeys commands Verbal Response: (5) Oriented [place] Total: 15 - Related Data Home Medications Medication Instructions Recorded Confirmed Last Taken Dapagliflozin Propanediol [Farxiga] 5 mg PO DAILY 05/18/19 05/18/19 05/18/19 Insulin Degludec [Tresiba 10 unit SQ DAILY 05/18/19 05/18/19 05/18/19 Flextouch U-100] Previous Rx's Medication Instructions Recorded Pantoprazole Sodium [Protonix] 40 mg PO DAILY #30 tablet. 05/01/19 Allergies Allergy/AdvReac Type Severity Reaction Status Date / Time naproxen Allergy Intermediate SWELLING Verified 05/01/19 22:07 OF THE TONGUE Travel Screening - Travel/Exposure Within Last 30 Days Have you traveled within the last 30 days?: No - Travel Symptoms Symptom Screening: Headache, Fatigue Review of Systems Reviewed: No additional complaints except as noted below Constitutional: Reports: As per HPI. Denies: Chills, Fever, Malaise, Night sweats, Weakness, Weight change Eyes: Reports: As per HPI. Denies: Eye discharge, Eye pain, Photophobia, Vision change ENT: Reports: As per HPI. Denies: Congestion, Dental pain, Ear pain, Epistaxis, Hearing loss, Throat pain Respiratory: Reports: As per HPI. Denies: Cough, Dyspnea, Hemoptysis, Stridor, Wheezes Cardiovascular: Reports: As per HPI. Denies: Arrhythmia, Chest pain, Dyspnea on exertion, Edema, Murmurs, Orthopnea, Palpitations, Paroxysmal nocturnal dyspnea, Rheumatic Fever, Syncope Endocrine: Reports: As per HPI. Denies: Fatigue, Heat or cold intolerance, Polydipsia, Polyuria Gastrointestinal: Reports: As per HPI. Denies: Abdominal pain, Constipation, Diarrhea, Hematemesis, Hematochezia, Melena, Nausea, Vomiting Genitourinary: Reports: As per HPI. Denies: Abnormal menses, Discharge, Dyspareunia, Dysuria, Frequency, Hematuria, Incontinence, Retention, Urgency Musculoskeletal: Reports: As per HPI. Denies: Arthralgia, Back pain, Gout, Joint swelling, Myalgia, Neck pain Skin: Reports: As per HPI. Denies: Bruising, Change in color, Change in hair/nails, Lesions, Pruritus, Rash Neurological: Reports: As per HPI. Denies: Abnormal gait, Confusion, Headache, Numbness, Paresthesias, Seizure, Tingling, Tremors, Vertigo, Weakness Psychiatric: Reports: As per HPI. Denies: Anxiety, Auditory hallucinations, Depression, Homicidal thoughts, Suicidal thoughts, Visual hallucinations Hematological/Lymphatic: Reports: As per HPI. Denies: Anemia, Blood Clots, Easy bleeding, Easy bruising, Swollen glands Past Medical History - SOCIAL HISTORY Smoking Status: Current every day smoker - RESPIRATORY Hx Respiratory Disorders: Yes Hx Asthma: Yes Hx Bronchitis: Yes Hx Pneumonia: Yes - CARDIOVASCULAR Hx Cardio Disorders: Yes Hx Hypertension: Yes - NEURO Hx Neuro Disorders: No - GI Hx GI Disorders: No - Hx Genitourinary Disorders: No - ENDOCRINE Hx Endocrine Disorders: Yes Hx Diabetes: Yes (Type 2) - MUSCULOSKELETAL Hx Musculoskeletal Disorders: Yes Hx Arthritis: Yes (shoulders) Comment:: c5-c6 fusing - PSYCH Hx Psych Problems: No - HEMATOLOGY/ONCOLOGY Hx Hematology/Oncology Disorders: No Family Medical History Any Significant Family History?: Yes Hx Diabetes: Mother, Grandparents Physical Exam - General General Appearance: Alert, Oriented x3, Cooperative, No acute distress - Head Head exam: Normal inspection - Eye Eye exam: Normal appearance, PERRL, EOMI Pupils: Normal accommodation - ENT ENT exam: Normal exam, Mucous membranes moist, Normal external ear exam, Normal orophraynx Ear exam: Normal external inspection. negative: External canal tenderness Nasal Exam: Normal inspection. negative: Discharge, Sinus tenderness Mouth exam: Normal external inspection, Tongue normal Teeth exam: Normal inspection. negative: Dental caries Throat exam: Normal inspection. negative: Tonsillar erythema, Tonsillar exudate - Neck Neck exam: Normal inspection, Full ROM. negative: Tenderness - Respiratory Respiratory exam: Normal lung sounds bilaterally. negative: Respiratory distress - Cardiovascular Cardiovascular Exam: Regular rate, Normal rhythm, Normal heart sounds - GI/Abdominal GI/Abdominal exam: Soft, Normal bowel sounds. negative: Tenderness - Rectal Rectal exam: Deferred - exam: Deferred - Extremities Extremities exam: Normal inspection, Full ROM, Normal capillary refill. ne gative: Tenderness - Back Back exam: Reports: Normal inspection, Full ROM. Denies: Muscle spasm, Rash noted, Tenderness - Neurological Neurological exam: Alert, CN II-XII intact, Normal gait, Oriented X3 - Psychiatric Psychiatric exam: Normal affect, Normal mood - Skin Skin exam: Dry, Intact, Normal color, Warm Course Vital Signs 05/18/19 23:08 Temperature 98.5 F Pulse Rate [ 81 Left] Respiratory 16 Rate Blood Pressure 206/97 [Left Arm] Pulse Ox 97 - Reevaluation(s) Reevaluation #1: 05/19/19 02:31 admission was offered but pt refused. she has monitor on arm and will monitir i at home all night. Medical Decision Making - Lab Data Result diagrams: 05/19/19 00:10 Lab Results 05/19/19 05/19/19 Range/Units 00:10 01:10 Sodium 140 (136-145) mmol/L Potassium 3.4 (3.4-4.5) mmol/L Chloride 101 (98-107) mmol/L Carbon Dioxide 24.0 (22-29) mmol/L Anion Gap 15.0 (7-16) BUN 13 (6-20) mg/dL Creatinine 0.7 (0.5-0.9) mg/dL Estimated GFR > 60 mL/min POC Glucose 89 (70-110) mg/dL Random Glucose 124 H (74-109) mg/dL Calcium 9.7 (8.6-10.0) mg/dL Disposition Disposition: Discharge Clinical Impression: Hypoglycemia Disposition: Home, Self-Care Condition: (1) Good Instructions: Hypoglycemia in a Person with Diabetes (ED) Additional Instructions: monitor glucose. 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 return sooner if worse Forms: Patient Portal Access Quality - Quality Measures Quality Measures: N/A - Blood Pressure Screening Does Patient Have Any of the Following: Active Dx of HTN Blood Pressure Classification: Hypertensive Reading Systolic Measurement: 206 Diastolic Measurement: 97 Screening for High Blood Pressure: Patient Exclusion, Hx of HTN [G9744]
== END 2019-05-19 02:42 | disposition home or self-care (01) ==
LOC: ER 22:56
DX: E11.649 Type 2 diabetes mellitus with hypoglycemia without coma (principal); R51 Headache; Z79.4 Long term (current) use of insulin; Z79.84 Long term (current) use of oral hypoglycemic drugs; I10 Essential (primary) hypertension; F17.210 Nicotine dependence, cigarettes, uncomplicated
CPT/HCPCS: 36416; 80048; 82948; 99283